=== PATIENT | male | born 1970 | race Caucasian/White ===

== ENCOUNTER 2024-07-05 16:07 | Emergency (ER) | payer BC, OTHER ==
[2024-07-05 16:15] VITALS: RESP 18
[2024-07-05] MEDS: KETOROLAC 15 MG/ML 1 ML VIAL IM STA (16:48)
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
--- NOTE | 2024-07-05 17:35 | XR ---
EXAMINATION TYPE: XR ribs LT w pa chest xray, XR shoulder complete LT, XR clavicle LT, XR humerus LT DATE OF EXAM: 07/05/2024 5:16 PM CLINICAL INDICATION: Male, 53 years old with history of fall; COMPARISON: 07/05/2024 TECHNIQUE: XR ribs LT w pa chest xray, XR shoulder complete LT, XR clavicle LT, XR humerus LT; Fronta l and oblique views of the ribs with frontal chest radiograph. The humerus was evaluated in frontal and lateral views. The shoulder was evaluated in frontal external rotation and scapular Y view. The clavicle is evaluate d and 2 frontal views. FINDINGS/IMPRESSION: Cortical step-off of the third rib on the left as well as abnormal appearance of the left clavicle decker spicious for acute fractures.. The remainder of the osseous structures including the humerus appear i ntact.
[2024-07-05] MEDS: DIPH,PERTUS(ACELL)TETVAC-LF 0.5 ML VIAL IM ONE (18:34)
[2024-07-05] MEDS: ACET/COD 300 MG/30 MG STARTER PACK 6 TAB BTL PO STA (18:35)
[2024-07-05 18:44] VITALS: BP 136/71; PULSE 50; TEMP 97.9
== END 2024-07-05 18:44 | disposition home or self-care (01) ==
LOC: EC 16:07
CPT/HCPCS: 90471; 90715; 96372; 99283

== ENCOUNTER → 2024-08-21 | Outpatient (CLI) | payer BC ==
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
== END | disposition home or self-care (01) ==
LOC: RADCTMAIN 12:54
PROVIDERS: ATTEND Family Medicine
CPT/HCPCS: 71250; 93922